=== PATIENT | female | born 1965 | race African-American/Black ===

== ENCOUNTER → 2022-03-27 | Day surgery (SDC) | payer BC, OTHER | END | disposition home or self-care (01) | LOC: JRADIR 09:32 | PROVIDERS: ATTEND Internal Medicine Endocrinology, Diabetes & Metabolism | PROC: 0G9K3ZX Drainage of Thyroid Gland, Percutaneous Approach, Diagnostic (ICD-10-PCS; principal; 2022-03-27) | DX: E04.1 Nontoxic single thyroid nodule (principal) | CPT/HCPCS: 10005; 76942; 88173; 88305-TC ==